=== PATIENT | female | born 1950 | race Caucasian/White ===

== ENCOUNTER 2018-07-17 14:21 | Inpatient (IN) | payer MEDICARE, OTHER ==
[~2018-07-17] VITALS: Ht 180.3 cm; Wt 150.6 kg
--- OUTSIDE RECORDS SUMMARY | 2018-07-17 14:24 | XMS REPORT | Continuity of Care Document ---
Author Author [facility] Organization [facility] Address Unknown Phone Unavailable Care Team Providers Care Labor Relations Analyst Name Role Phone Jocy Botello MD, MD Admphys Jocy Botello MD, MD Attphys PCPNF PCP Unavailable Insurance Providers Guarantor Jessica Mckenna Address [address] [place] [address] Email N Payer [employer] Policy Number [id number] Subscriber's Name Jessica Mckenna Relationship Self / Same As Patient Group Number [id number] Group Name PPO CHOICE Effective Date 16 Advance Directives Directive Response Recorded Date/Time Does the Patient have an Advance Directive? No 07/01/18 9:36pm Chief Complaint and Reason for Visit Chief Complaint OPEN ANKLE FRACTURE Reason for Visit Open fracture of left ankle Morbid obesity Depression HTN (hypertension) HLD (hyperlipidemia) Problems Medical Problem Onset Date Status Ankle fracture Unknown Open ankle fracture Unknown Open fracture of left ankle Unknown Resolved Morbid obesity Unknown Chronic Depression Unknown Chronic HTN (hypertension) Unknown Chronic HLD (hyperlipidemia) Unknown Chronic Medications Current Home Medications Medication Dose Units Route Directions Days Qty Instructions Start Date Atorvastatin Calcium (Lipitor) 10 Mg Tab 10 Mg Oral Bedtime Bisoprolol Fumarate/Hctz (Ziac 5-6.25) 5/6.25 Mg Tab 1 Tab Oral Daily After Dinner Lisinopril (Zestril) 10 Mg Tab 10 Mg Oral Twice A Day Sertraline Hcl (Zoloft) 50 Mg Tab 50 Mg Oral Daily Tramadol Hcl (Ultram) 50 Mg Tab 50 Mg Oral Every 6 Hours 30 Tablet 07/05/18 Social History Social History Problem Response Recorded Date/Time Onset Date Status Hx Tobacco Use No 07/01/2018 9:36pm Not Applicable Not Applicable Smoking Status Start Date Stop Date Never Smoker Hospital Discharge Instructions Patient Instructions Discharge Instructions DISCHARGE: Discharge Follow Up: Appointment Made Name of Physician; Date and Time of Appointment (if made): FOLLOW UP WITH DR. VIEIRA ON SundayJune AT 10:00AM Additional Activity Limitation Instructions: ADMIT TO [facility] FULL CODE REGULAR DIET NKDA DX: OPEN LEFT ANKLE FRACTURE SX: ORIF LEFT ANKLE PT/OT EVAL AND TREAT NWB LLE WITH WALKER FOR 3 MONTHS MEDICATIONS PER RECONCILIATION SHEET FALL PRECAUTIONS KEEP INCISION AND DRESSING DRY AND INTACT WITH FRACTURE BOOT IN PLACE. Call MD For:: Temp of 101 or Greater Increased Breathing Prob Increased Swelling Questions or Concerns Unrelieved Dizziness Increased Pain Bleeding Physician Instructions Discharge Follow Up: Fm/Pt to Make Appointment Call MD For: Temp of 101 or Greater, Increased Breathing Prob, Increased Swelling, Questions or Concerns, Unrelieved Dizziness, Increased Pain, Bleeding Additional MD Instructions: Follow up with primary care dcotor within 1 week Follow up with ortho as directed by them Nursing Instructions Discharge Transportation: Van Accompanied By: [facility] Belongings Sent Home with Patient: Yes Valuables Description: ALL PERSONAL BELONGINGS IN ROOM SENT WITH PATIENT Additional Discharge Information: ADMIT PATIENT TO [facility] IN [place], [place] S/P FALL,LEFT OPEN ANKLE FRACTURE 07/01/18 IRRIGATION AND DEBRIDEMENT OF LEFT OPEN ANKLE FRACTURE WITH OPEN REDUCTION INTERNAL FIXATION BY DR VIEIRA DIET:REGULAR ALLERGIES:NKDA CODE STATUS:FULL CODE PT/OT TO EVALUATE AND TREAT AMBULATE WITH ROLLING WALKER NO WEIGHT BEARING LEFT LEG KEEP LEFT LEG ELEVATED WHEN SITTING OR LYING DOWN WEAR WALKING BOOT/FRACTURE BOOT TO LEFT LEG AT ALL TIMES REMOVE PROVENA VAC ON Sunday07/08/18 AND START DAILY DRESSING CHANGES WITH CHLORAPREP AND DRY DRESSING. REAPPLY FRACTURE BOOT/WALKING BOOT AFTER DRESSING CHANGE. FOLLOW UP WITH DR VIEIRA IN THE OFFICE AT [facility] ON SundayJune @ 10:15 AM CALL FOR PAIN UNRELIEVED BY PAIN MEDS,SUDDEN ONSET OF SEVERE PAIN,EXCESSIVE DRAINAGE,FOUL SMELLING DRAINAGE,REDNESS,SWELLING OR SEPARATION OF INCISION OR ANY OTHER SYMPTOM OF CONCERN. Pt/Fm/Caregiver Expressed Understanding of Portal Enrollment: Yes Pt/Family/Caregiver Received Discharge Home Medication List: Yes Prescription(s) Given: Yes Comment: TRAMADOL Discharge Care Plan #1 Problem: Pain Goal: CONTROL PAIN Instructions: TAKE PAIN MEDS PRESCRIBED Discharge Care Plan #2 Problem: Risk for Falls Goal: NO FALLS Instructions: FALL PRECAUTIONS USE ROLLING WALKER FOR ALL OUT OF BED ACTIVITIES Discharge Care Plan #3 Problem: High Risk for Infection Goal: NO INFECTION Instructions: CALL FOR SIGNS OR SYMPTOMS OF INFECTION INCLUDING FEVER AND CHILLS Plan of Care Discharge Date 07/08/18 7:33pm Disposition [facility] Instructions/Education Provided Preventing Falls Open Reduction and Internal Fixation Surgery (DC) Forms Provided Antimicrobial Stewardship General Discharge Instructions Prescriptions See Medication Section Functional Status Query Response Date Recorded Onset Within the Last 7 Days No Problem Identified July 01, 2018 9:36pm Allergies, Adverse Reactions, Alerts No known allergies. Immunizations Immunization Event Date Type Not Given Reason Dose Number Lot Number Director Educational Radio Tetanus/Diphtheria/Acellular Pertussis 07/01/18 Administered 1 [id number] [employer] Query Response on File Recorded Date/Time HX of Pneumococcal Vaccine No 07/01/18 12:40pm HX of Influenza Vaccine No 07/01/18 12:40pm Tetanus Status Unknown 07/01/18 12:40pm Vital Signs Acute Vital Signs Vital Response Date/Time Temperature (Fahrenheit) 98.4 degrees F (97.6 - 99.5) 07/08/2018 4:20pm Pulse Rate (adult) 72 bpm (60 - 100) 07/08/2018 4:20pm Pulse Rate 70 bpm 07/01/2018 3:30pm Respiratory Rate 16 breaths per minute (12 - 24) 07/08/2018 4:20pm Respiratory Rate 18 breaths per minute 07/01/2018 3:30pm Blood Pressure Systolic 145 mm Hg (100 - 140) 07/08/2018 4:20pm Blood Pressure Systolic 136 mm Hg 07/01/2018 3:30pm Blood Pressure Diastolic 82 mm Hg (60 - 90) 07/08/2018 4:20pm Blood Pressure Diastolic 82 mm Hg 07/01/2018 3:30pm Height 6 ft 5 in 07/01/2018 9:36pm Weight 310 lb 07/01/2018 1:46pm Body Mass Index 36.8 kg/m^2 07/01/2018 9:36pm Results Laboratory Results Test Name Result Units Flags Reference Collection Date/Time Result Date/Time Comments White Blood Count 12.9 10*3/uL H 4.5-11.5 07/01/2018 1:45pm 07/01/2018 2:06pm Red Blood Count 4.66 10*6/uL 3.8-5.1 07/01/2018 1:45pm 07/01/2018 2:06pm Hemoglobin 13.3 g/dL 12.0-15.2 07/01/2018 1:45pm 07/01/2018 2:06pm Hematocrit 42.3 % 34.0-45.5 07/01/2018 1:45pm 07/01/2018 2:06pm Mean Corpuscular Volume 91 fL 80-94 07/01/2018 1:45pm 07/01/2018 2:06pm Mean Corpuscular Hemoglobin 28.5 pg 27.0-33.0 07/01/2018 1:45pm 07/01/2018 2:06pm Mean Corpuscular Hemoglobin Concent 31.4 g/dL L 33.0-37.0 07/01/2018 1:45pm 07/01/2018 2:06pm Red Cell Distribution Width 12.9 % 10.7-14.5 07/01/2018 1:45pm 07/01/2018 2:06pm Platelet Count 240 10*3/uL 150-450 07/01/2018 1:45pm 07/01/2018 2:06pm Mean Platelet Volume 11.6 fl H 5.7-10.7 07/01/2018 1:45pm 07/01/2018 2:06pm Manual Differential ----- 07/01/2018 1:45pm 07/01/2018 2:06pm Neutrophils % (Manual) 77 % H 42-75 07/01/2018 1:45pm 07/01/2018 2:46pm Lymphocytes % (Manual) 13 % L 21-51 07/01/2018 1:45pm 07/01/2018 2:46pm Monocytes % (Manual) 8 % 1-9 07/01/2018 1:45pm 07/01/2018 2:46pm Eosinophils % (Manual) 1 % 0-7 07/01/2018 1:45pm 07/01/2018 2:46pm Basophils % (Manual) 1 % 0-2 07/01/2018 1:45pm 07/01/2018 2:46pm Platelet Estimate Adequate 07/01/2018 1:45pm 07/01/2018 2:46pm Red Blood Cell Morphology Normal 07/01/2018 1:45pm 07/01/2018 2:46pm Prothrombin Time 10.2 sec 9.4-12.0 07/01/2018 1:45pm 07/01/2018 2:25pm Reference range studies have been peformed on new reagent and reference range has been changed on 07/17/17. Prothromb Time International Ratio 1.0 Ratio 0.8-1.2 07/01/2018 1:45pm 07/01/2018 2:25pm *INR values, while recommended for monitoring all stages of oral anticoagulant therapy, may be less reliable during the initiation period of treatment. INR THERAPEUTIC RANGE: Conventional Dose=2.0 - 3.0 Intensive Dose=2.5 - 3.5 Activated Partial Thromboplast Time 23.5 sec 21.0-33.0 07/01/2018 1:45pm 07/01/2018 2:25pm For heparin monitoring, aPTT 44.0-66.0 seconds corresponds to heparin 0.3-0.7 IU/mL. Reference range and heparin studies were performed on new [employer] on 05/22/18. Bedside Sodium 142 mmol/L 136-145 07/01/2018 1:54pm 07/01/2018 1:57pm Bedside Potassium 3.5 mmol/L 3.5-5.1 07/01/2018 1:54pm 07/01/2018 1:57pm Bedside Chloride 102 mmol/L 100-112 07/01/2018 1:54pm 07/01/2018 1:57pm Bedside Total CO2 27.0 mmol/L 24.0-33.0 07/01/2018 1:54pm 07/01/2018 1:57pm Bedside Blood Urea Nitrogen 18 mg/dL 8-23 07/01/2018 1:54pm 07/01/2018 1:57pm Bedside Creatinine 0.7 mg/dL 0.7-1.3 07/01/2018 1:54pm 07/01/2018 1:57pm Bedside Glucose 111 mg/dL H 60-100 07/01/2018 1:54pm 07/01/2018 1:57pm Bedside Whole Blood Ionized Calcium 1.16 mmol/L 1.12-1.32 07/01/2018 1:54pm 07/01/2018 1:57pm Bedside Anion Gap 18 8-18 07/01/2018 1:54pm 07/01/2018 1:57pm Estimat Glomerular Filtration Rate 89 60-110 07/01/2018 1:54pm 07/01/2018 1:57pm Stages of Patients with Estimated GFR Known Kidney Disease (ml/min/1.73 sq.meters) Stage 1 - Kidney damage w/normal 90 mL/min or greater or increased GFR Stage 2 - Kidney disease w/mildly 60-89 mL/min decreased GFR Stage 3 - Moderately decreased GFR 30-59 mL/min Stage 4 - Severely decreased GFR 15-29 mL/min Stage 5 - Kidney failure 14 mL/min or less To estimate the GFR for Americans, multiply the result provided by 1.21. Bedside Hemoglobin 13.6 g/dL 12.0-15.2 07/01/2018 1:54pm 07/01/2018 1:57pm Bedside Hematocrit 40.0 % 35.0-45.0 07/01/2018 1:54pm 07/01/2018 1:57pm Procedures Procedure Status Date Provider(s) Open reduction and internal fixation of fracture of left ankle Completed 07/01/18 ARMANDO VIEIRA MD ECG (electrocardiogram) Completed 07/01/18 TASHA MORAN MD X-ray of chest, single view Completed 07/01/18 TASHA MORAN MD X-ray of ankle, AP and lateral views Completed 07/01/18 TASHA MORAN MD X-ray of ankle, three or more views Completed 07/01/18 ARMANDO VIEIRA MD Fluoroscopy with C-arm for less than 60 minutes Completed 07/01/18 ARMANDO VIEIRA MD Physical therapy evaluation and treatment Active 07/01/18 ARMANDO VIEIRA MD Encounter Stat Only Day Sgy Completed 07/01/18 JOCY BOTELLO MD [facility] trauma team Completed 07/01/18 JOCY BOTELLO MD Encounters Encounter Location Arrival/Admit Date Discharge/Depart Date Attending Provider Discharged Inpatient [facility] 07/01/18 2:26pm 07/08/18 7:33pm JOCY BOTELLO MD Recent Diagnosis Open fracture of left ankle
[2018-07-17] MEDS ORDERED: ONDANSETRON HCL INJ 2 MG/ML VIAL IV STA (14:44)
[2018-07-17] MEDS ORDERED: SODIUM CHLORIDE 0.9% 1000ML 1,000 ML IV STA ×2 (14:44→15:01)
[2018-07-17] MEDS ORDERED: FAMOTIDINE 20 MG/2 ML VIAL IV STA (14:44)
[2018-07-17] MEDS ORDERED: DIPHENHYDRAMINE HCL INJ 50 MG/ML VIAL IV ONE (14:45)
[2018-07-17] MEDS ORDERED: METHYLPREDNISOLONE SOD SUCC 125 MG/2ML VIAL IV ONE (14:45)
[2018-07-17 17:47] LABS: BASOPHILS % 0.1 % (0.0-1.0); EOSINOPHILS # (AUTO) 0.1 (0.0-0.4); EOSINOPHILS % 0.7 % (0.0-6.0); HEMOGLOBIN 12.7 g/dL (12.0-16.0); LYMPHOCYTES # (AUTO) 2.9 (1.0-3.2); LYMPHOCYTES % 16.3 % (18.0-39.1); MEAN CORPUSCULAR HGB CONC 32.6 g/dL (31-35); MONOCYTES # (AUTO) 0.7 (0.2-0.8); MONOCYTES % 3.8 % (4.4-11.3); NEUTROPHILS # (AUTO) 13.9 (2.1-6.9); NEUTROPHILS % 78.5 % (38.7-80.0); PLATELET COUNT 449 x10e3/uL (140-360); RED BLOOD COUNT 4.38 x10e6/uL (3.6-5.1); RED CELL DISTRIBUTION WIDTH 13.3 % (11.7-14.4)
[2018-07-17 17:59] LABS: ALBUMIN 3.2 g/dL (3.5-5.0); ALBUMIN/GLOBULIN RATIO 0.9 (0.8-2.0); ANION GAP 18.2 mmol/L (8-16); CALCIUM 9.6 mg/dL (8.4-10.2); CREATININE, SERUM 1.07 mg/dL (0.57-1.11); POTASSIUM 3.2 mmol/L (3.5-5.1)
[2018-07-17] MEDS ORDERED: ONDANSETRON HCL INJ 2 MG/ML VIAL IV PRN (19:00)
[2018-07-17] MEDS ORDERED: ALBUTEROL SULF 0.083% NEB SOLN 3 ML NEB NEB PRN (19:00)
[2018-07-17] MEDS ORDERED: LISINOPRIL10 MG PO (19:18)
[2018-07-17] MEDS ORDERED: ZOLOFT50 MG PO (19:18)
[2018-07-17] MEDS ORDERED: LIPITOR20 MG PO (19:19)
[2018-07-17] MEDS: SODIUM CHLORIDE 0.9% 1000ML 1,000 ML IV SCH (19:21)
[2018-07-17] MEDS ORDERED: ZIAC 5-6.25 MG1 EACH PO (19:35)
[2018-07-17 20:00] VITALS: BP 120/58
[2018-07-17 20:37] VITALS: BP 120/88
[2018-07-17] MEDS: METHYLPREDNISOLONE SOD SUCC 125 MG/2ML VIAL IV SCH (21:30)
[2018-07-17] MEDS: DIPHENHYDRAMINE HCL 25 MG CAP PO PRN (21:30)
[2018-07-17 21:31] VITALS: BP 120/88
[2018-07-18] VITALS (7 sets, daily range): BP systolic 120–158; BP diastolic 63–88
[2018-07-18] MEDS: SODIUM CHLORIDE 0.9% 1000ML 1,000 ML IV SCH ×2 (05:19→21:00)
[2018-07-18] MEDS: METHYLPREDNISOLONE SOD SUCC 125 MG/2ML VIAL IV SCH ×3 (05:19→21:00)
[2018-07-18] MEDS ORDERED: POTASSIUM CHLORIDE 20 MEQ TAB CR PO STA (07:53)
[2018-07-18] MEDS: FAMOTIDINE 20 MG TAB PO SCH ×2 (08:00→16:30)
[2018-07-18] MEDS: DIPHENHYDRAMINE HCL 25 MG CAP PO PRN ×2 (08:55→18:22)
--- NOTE | 2018-07-18 09:11 | History and Physical ---
REASON FOR ADMISSION: Angioedema. HISTORY OF PRESENT ILLNESS: Patient is a 67-year-old lady who was recently taking some what appears to be clindamycin and started having hives which led to lip swelling. So therefore she then presented into the emergency room where she has been admitted for further evaluation. Patient states that she continues and still have symptoms, but does overall feel much better. PAST MEDICAL HISTORY: Significant for hypertension. MEDICATIONS: See MAR. ALLERGIES: MOST LIKELY CLINDAMYCIN, BUT WE WILL TRY TO VERIFY WITH HER PHARMACIST. SOCIAL HISTORY: Nonsmoker and nondrinker. FAMILY HISTORY: Noncontributory. PHYSICAL EXAMINATION VITALS: Temperature 96.6, pulse 86, blood pressure , sats 97% on room air. GENERAL: She is in no apparent distress, but she has had some slight swelling of the lower portion on the right side. The tongue is normal size and there is no swelling. CARDIOVASCULAR: Regular rate and rhythm. LUNGS: Clear to auscultation bilaterally. ABDOMEN: Good bowel sounds. Soft and nontender. EXTREMITIES: No clubbing or cyanosis. NEUROLOGIC: Nonfocal. SKIN: Examination shows multiple hives throughout the entire body. ASSESSMENT AND PLAN 1. Angioedema. Continue with steroids, Benadryl, and Pepcid, so she is doing better. 2. Hypertension. Continue with current treatment . 3. Hypokalemia. We will replace. 4. Leukocytosis. We will continue to monitor. Please see hospital chart for full details. Job#: [id number] YADI
[2018-07-19] VITALS (8 sets, daily range): BP systolic 149–175; BP diastolic 69–95
[2018-07-19] MEDS: SODIUM CHLORIDE 0.9% 1000ML 1,000 ML IV SCH ×3 (00:52→06:00)
[2018-07-19] MEDS: DIPHENHYDRAMINE HCL 25 MG CAP PO PRN ×2 (01:00→08:51)
[2018-07-19] MEDS: METHYLPREDNISOLONE SOD SUCC 125 MG/2ML VIAL IV SCH ×3 (05:48→22:20)
[2018-07-19 07:19] LABS: BASOPHILS % 0.1 % (0.0-1.0); HEMATOCRIT 32.9 % (34.2-44.1); HEMOGLOBIN 10.2 g/dL (12.0-16.0); LYMPHOCYTES # (AUTO) 1.3 (1.0-3.2); LYMPHOCYTES % 7.4 % (18.0-39.1); MEAN CORPUSCULAR VOLUME 93.5 fL (81-99); MONOCYTES # (AUTO) 0.6 (0.2-0.8); MONOCYTES % 3.1 % (4.4-11.3); NEUTROPHILS # (AUTO) 15.9 (2.1-6.9); NEUTROPHILS % 88.6 % (38.7-80.0); PLATELET COUNT 317 x10e3/uL (140-360); RED BLOOD COUNT 3.52 x10e6/uL (3.6-5.1); RED CELL DISTRIBUTION WIDTH 13.7 % (11.7-14.4)
[2018-07-19 07:47] LABS: ALANINE AMINOTRANSFERASE 8 IU/L (0-55); ALBUMIN 2.6 g/dL (3.5-5.0); ALBUMIN/GLOBULIN RATIO 0.8 (0.8-2.0); ALKALINE PHOSPHATASE 47 IU/L (40-150); ANION GAP 11.1 mmol/L (8-16); BLOOD UREA NITROGEN 17 mg/dL (7-26); BUN/CREATININE RATIO 23 (6-25); CALCIUM 8.7 mg/dL (8.4-10.2); CARBON DIOXIDE 23 mmol/L (22-29); CHLORIDE 111 mmol/L (98-107); CREATININE, SERUM 0.73 mg/dL (0.57-1.11); EST GLOMERULAR FILTRATION RATE > 60 ML/MIN (60-); GLUCOSE 190 mg/dL (74-118); POTASSIUM 4.1 mmol/L (3.5-5.1); SODIUM 141 mmol/L (136-145)
[2018-07-19] MEDS: FAMOTIDINE 20 MG TAB PO SCH ×2 (08:23→17:49)
[2018-07-19] MEDS ORDERED: ACETAMINOPHEN 325 MG TAB PO PRN (21:45)
[2018-07-19] MEDS ORDERED: HYDRALAZINE HCL 20 MG/ML VIAL IV ONE (22:00)
[2018-07-20] MEDS ORDERED: HYDRALAZINE HCL 20 MG/ML VIAL IV PRN (01:15)
[2018-07-20 04:00] VITALS: BP 158/92
[2018-07-20] MEDS: METHYLPREDNISOLONE SOD SUCC 125 MG/2ML VIAL IV SCH ×3 (06:00→21:15)
[2018-07-20] MEDS: SODIUM CHLORIDE 0.9% 1000ML 1,000 ML IV SCH (06:00)
[2018-07-20] MEDS: FAMOTIDINE 20 MG TAB PO SCH ×2 (06:03→16:30)
[2018-07-20 08:00] VITALS: BP 191/77
[2018-07-20 11:34] VITALS: BP 195/91
[2018-07-20] MEDS: SERTRALINE HCL 50 MG TAB PO SCH (12:00)
[2018-07-20] MEDS: LISINOPRIL 10 MG TAB PO SCH ×2 (12:00→17:00)
[2018-07-20 15:45] VITALS: BP 182/81
[2018-07-20 20:00] VITALS: BP 170/72
[2018-07-20] MEDS ORDERED: ATORVASTATIN 20 MG TAB PO SCH (21:00)
[2018-07-20] MEDS ORDERED: HYDROCHLOROTHIAZIDE 25 MG TAB PO SCH (21:00)
[2018-07-20] MEDS ORDERED: BISOPROLOL FUMARATE 10 MG TAB PO SCH (21:00)
[2018-07-21] VITALS: BP 167/77
[2018-07-21 04:00] VITALS: BP 161/74
[2018-07-21] MEDS: METHYLPREDNISOLONE SOD SUCC 125 MG/2ML VIAL IV SCH (05:05)
[2018-07-21] MEDS: FAMOTIDINE 20 MG TAB PO SCH (07:30)
[2018-07-21 07:54] VITALS: BP 181/78
[2018-07-21] MEDS: LISINOPRIL 10 MG TAB PO SCH (09:00)
[2018-07-21] MEDS: SERTRALINE HCL 50 MG TAB PO SCH (09:00)
== END 2018-07-21 09:43 | disposition home or self-care (01) | DRG 916 ==
LOC: ER 14:21 → ERHOLD 19:03 → MED/SURG3 20:49 → OBSVTOIN 07-20 07:53
PROVIDERS: ADMIT Internal Medicine; ATTEND Internal Medicine
DX: T78.3XXA Angioneurotic edema, initial encounter (principal); I10 Essential (primary) hypertension; E87.6 Hypokalemia; T36.8X5A Adverse effect of other systemic antibiotics, initial encounter; D72.829 Elevated white blood cell count, unspecified; K21.9 Gastro-esophageal reflux disease without esophagitis; D64.9 Anemia, unspecified
CPT/HCPCS: 36415; 80053; 83735; 85025; 87086; 97139; 99284; G0378; J0360; J1200; J2405; J2930; J7030

== ENCOUNTER → 2020-08-31 | Outpatient (CLI) | payer OTHER, MEDICARE ==
[~2020-08-31] MED LIST: LIPITOR20 MG PO; LISINOPRIL10 MG PO; ZIAC 5-6.25 MG1 EACH PO; ZOLOFT50 MG PO
== END ==
LOC: RAD 13:41
PROVIDERS: ATTEND Family Medicine
DX: R60.9 Edema, unspecified (principal)
CPT/HCPCS: 93970

== ENCOUNTER → 2022-02-21 | Outpatient (CLI) | payer MEDICARE | LOC: RAD 10:44 | PROVIDERS: ATTEND Nurse Practitioner Adult Health | DX: R60.0 Localized edema (principal) | CPT/HCPCS: 93971 ==

== ENCOUNTER → 2022-07-05 | Outpatient (CLI) | payer MEDICARE | LOC: RAD 11:35 | PROVIDERS: ATTEND Nurse Practitioner Adult Health | DX: R60.9 Edema, unspecified (principal) | CPT/HCPCS: 93970 ==